=== PATIENT | male | born 1985 | race Caucasian/White ===

== ENCOUNTER 2016-10-19 00:58 | Emergency (ER) | payer OTHER ==
[2016-10-19] MEDS ORDERED: Albuterol/Ipratropium 3.0-0.5 MG/3 ML Neb Soln NEB ONE (01:00)
[2016-10-19] MEDS ORDERED: methylPREDNISolone Sodium Succinate 125 MG/2 ML SDV IVPUSH ONE (01:05)
--- NOTE | 2016-10-19 02:01 | EDM.PDOC ---
ED HPI GENERAL MEDICAL PROBLEM - General Chief Complaint: Respiratory Problem Stated Complaint: SHORTNESS OF BREATH Time Seen by Provider: 10/19/16 01:55 - History of Present Illness INITIAL COMMENTS - FREE TEXT/NARRATIVE: HISTORY AND PHYSICAL: History of present illness: Patient is a 31-year-old male with chief complaint of shortness breath and wheezing the patient has history of asthma but has been without an attack for quite some time he denies fever chills nausea vomiting or other complaints Review of systems: As per history of present illness and below otherwise all systems reviewed and negative. Past medical history: As per history of present illness and as reviewed below otherwise noncontributory. Surgical history: As per history of present illness and as reviewed below otherwise noncontributory. Social history: No reported history of drug or alcohol abuse. Family history: As per history of present illness and as reviewed below otherwise noncontributory. Physical exam: HEENT: Atraumatic, normocephalic, pupils reactive, negative for conjunctival pallor or scleral icterus, mucous membranes moist, throat clear, neck supple, nontender, trachea midline. Lungs: Scattered bilateral end expiratory wheezing noted breath sounds equal bilaterally, chest nontender. Heart: S1S2, regular, negative for clicks, rubs, or JVD. Abdomen: Soft, nondistended, nontender. Negative for masses or hepatosplenomegaly. Negative for costovertebral tenderness. Pelvis: Stable nontender. Genitourinary: Deferred. Rectal: Deferred. Extremities: Atraumatic, negative for cords or calf pain. Neurovascular unremarkable. Neuro: Awake, alert, oriented. Cranial nerves II through XII unremarkable. Cerebellum unremarkable. Motor and sensory unremarkable throughout. Exam nonfocal. Diagnostics: Chest x-ray Therapeutics: Albuterol ipratropium nebulizer Solu-Medrol 125 mg IV Impression: #1 acute asthmatic exacerbation Definitive disposition and diagnosis as appropriate pending reevaluation and review of above. Upper Chest Pain Score (Numeric/FACES): 3 - Related Data Allergies Allergy/AdvReac Type Severity Reaction Status Date / Time No Known Allergies Allergy Verified 05/28/14 07:58 Home Meds: Home Meds . [No Known Home Meds] 10/19/16 [History] Past Medical History Respiratory History: Reports: Asthma - Infectious Disease History Infectious Disease History: Reports: Chicken Pox - Past Surgical History Musculoskeletal Surgical History: Reports: Other (See Below) Other Musculoskeletal Surgeries/Procedures:: hip surgery Social & Family History - Family History Cardiac: Reports: Other (See Below) Other Cardiac Family History: heart disease - Tobacco Use Smoking Status *Q: Former Smoker Years of Tobacco use: 9 Packs/Tins Daily: 0.2 Used Tobacco, but Quit: Yes Month Tobacco Last Used: last week - Caffeine Use Caffeine Use: Reports: Soda - Alcohol Use Days Per Week of Alcohol Use: 1 Number of Drinks Per Day: 3 Total Drinks Per Week: 3 - Recreational Drug Use Recreational Drug Use: No ED ROS GENERAL - Review of Systems Review Of Systems: ROS reveals no pertinent complaints other than HPI. ED EXAM, GENERAL - Physical Exam Exam: See Below (See dictation) Course - Vital Signs Last Recorded V/S: Last Vital Signs Temp 35.7 C 10/19/16 01:06 Pulse 88 10/19/16 01:06 Resp 22 H 10/19/16 01:06 BP 178/105 H 10/19/16 01:06 Pulse Ox 97 10/19/16 01:06 - Orders/Labs/Meds Orders: Active Orders 24 hr Category Date Time Status RT Aerosol Therapy [RC] ASDIRECTED Care 10/19/16 01:00 Active Chest 1V Frontal [CR] Stat Exams 10/19/16 01:05 Taken Meds: Medications Discontinued Medications Generic Name Dose Route Start Last Admin Trade Name Enrriqueq PRN Reason Stop Dose Admin Albuterol/Ipratropium 3 ml 10/19/16 01:00 10/19/16 01:04 Duoneb 3.0-0.5 Mg/3 Ml NEB 10/19/16 01:01 3 ml ONETIME ONE Administration Methylprednisolone Sodium Succinate 125 mg 10/19/16 01:05 10/19/16 01:07 Solu-Medrol IVPUSH 10/19/16 01:06 125 mg ONETIME ONE Administration Departure - Departure Time of Disposition: 02:01 Disposition: Home, Self-Care 01 Condition: good Clinical Impression: Exacerbation of asthma - Discharge Information Forms: ED Department Discharge Additional Instructions: The following information is given to patients seen in the emergency department who are being discharged to home. This information is to outline your options for follow-up care. We provide all patients seen in our emergency department with a follow-up referral. The need for follow-up, as well as the timing and circumstances, are variable depending upon the specifics of your emergency department visit. If you don't have a primary care physician on staff, we will provide you with a referral. We always advise you to contact your personal physician following an emergency department visit to inform them of the circumstance of the visit and for follow-up with them and/or the need for any referrals to a consulting specialist. The emergency department will also refer you to a specialist when appropriate. This referral assures that you have the opportunity for followup care with a specialist. All of these measure are taken in an effort to provide you with optimal care, which includes your followup. Under all circumstances we always encourage you to contact your private physician who remains a resource for coordinating your care. When calling for followup care, please make the office aware that this follow-up is from your recent emergency room visit. If for any reason you are refused follow-up, please contact the [facility] emergency department at and asked to speak to the emergency department charge nurse. [facility] [address] [place] [id number] Albuterol Medrol as prescribed follow up primary medical doctor and/or clinic above is discussed return as needed as discussed - My Orders Last 24 Hours: My Active Orders 10/19/16 01:00 RT Aerosol Therapy [RC] ASDIRECTED 10/19/16 01:05 Chest 1V Frontal [CR] Stat - Assessment/Plan Last 24 Hours: My Active Orders 10/19/16 01:00 RT Aerosol Therapy [RC] ASDIRECTED 10/19/16 01:05 Chest 1V Frontal [CR] Stat
[2016-10-19 02:19] VITALS: BP 128/71
--- NOTE | 2016-10-19 17:00 | CR ---
EXAM DATE: 10/19/16 PATIENT'S AGE: 31 Patient: MATHIEU CASTRO Facility: [place], [place] Site . Site : 1985 Study: XRay Chest [id number]/22/2017 1:25:21 AM Ordering Physician: Doctor Martin Final Report: INDICATION: sob since yesterday morning, cough x 12 hrs TECHNIQUE: Chest radiograph 1 view COMPARISON: None FINDINGS: Cardiovascular and mediastinum: The cardiac silhouette is normal in appearance and size. Mediastinum is within normal limits. Lungs and pleural space: Both lungs are unremarkable in appearance. No sign of pleural effusion. No pneumothorax is seen. Bones and soft tissues: Mild dextroscoliosis is present. IMPRESSION: 1. No acute cardiopulmonary disease seen. Dictated by: Adams Giraldo MD @ 10/19/2016 01:26:31 (Electronic Signature) Report Signed by Proxy. JAKE
== END 2016-10-19 02:16 | disposition home or self-care (01) ==
LOC: MW.ED 00:58
DX: J45.901 Unspecified asthma with (acute) exacerbation (principal); Z87.891 Personal history of nicotine dependence
CPT/HCPCS: 71010; 96374; 99284; J2930